=== PATIENT | female | born 1960 | race African-American/Black ===

== ENCOUNTER 2019-12-10 17:28 | Emergency (ER) | payer OTHER ==
[~2019-12-10] VITALS: Ht 162.6 cm; Wt 81.7 kg
[2019-12-10 18:03] LABS: ABSOLUTE NEUTROPHILS 3.1 thou/uL (1.4-8.2); BASOPHILS 1.1 % (0.0-2.0); HEMOGLOBIN 12.4 gm/dL (12.0-15.0); LYMPHOCYTES 42.6 % (24.0-44.0); MCH 30.2 pg (26.0-34.0); MCHC 33.5 g/dL (28.0-37.0); MONOCYTES 6.7 % (1.0-8.0); PLATELET COUNT 277 thou/uL (150-400); POLYS 48.6 % (36.0-66.0); RBC 4.11 mil/uL (4.20-5.00); RDW 13.9 % (10.5-14.5); WBC 6.3 thou/uL (4.0-11.0)
[2019-12-10 18:08] LABS: CALCIUM 9.9 mg/dL (8.5-10.1); CREATININE 1.1 mg/dL (0.6-1.0); POTASSIUM 4.4 mmol/L (3.5-5.1)
[2019-12-10] MEDS ORDERED: ATORVASTATIN CA80 MG PO (18:22)
[2019-12-10] MEDS ORDERED: METFORMIN HCL500 M3 PO (18:22)
[2019-12-10] MEDS ORDERED: NORVASC5 M1 PO (18:22)
[2019-12-10] MEDS ORDERED: OMEPRAZOLE10 MG PO (18:23)
[2019-12-10] MEDS ORDERED: GLYCOTROL CAPS1 EACH PO (18:23)
[2019-12-10 18:41] LABS: PROTIME 9.8 Seconds (9.3-11.4)
[2019-12-10 19:33] VITALS: BP 157/75
--- NOTE | 2019-12-11 07:29 | EKG ---
[facility] [place] [address] ELECTROCARDIOGRAM REPORT Name: EDY MONACO Room #: DEP [facility]#: [id number] Admission: 12/10/19 Attend Phys: Discharge: 12/10/19 Date of : 62 Report #: [id number] THIS REPORT FOR: cc: AMERICO - Jaye family physician/PCP AMERICO - Jaye family physician/PCP Jace Almanza MD [facility] ~ THIS REPORT FOR: //name// [facility] ED Test Date: 2019-12-10 Test Time: 19:00:59 Pat Name: EDY MONACO Department: Room: Gender: F Floor Sweeper: [facility] : 1960 Requested By: Anthony Benson Order Number: [id number] MD: Jace Almanza Measurements Intervals [place] Rate: 79 P: 52 NC: 210 QRS: -15 QRSD: 95 T: 34 QT: 382 QTc: 438 Interpretive Statements Sinus rhythm Borderline left axis deviation Low voltage, precordial leads No previous ECG available for comparison Electronically Signed On 12-11-2019 7:29:38 CDT by Jace Almanza [email or web address] <ELECTRONICALLY SIGNED> By: Jace Almanza MD, FACC 12/11/19 0729 99 99 Jace Almanza MD, FAC /EPI
== END 2019-12-10 19:48 | disposition home or self-care (01) ==
LOC: ER 17:28
PROVIDERS: Emergency Medicine
DX: Z71.1 Person with feared health complaint in whom no diagnosis is made (principal); I10 Essential (primary) hypertension; E11.9 Type 2 diabetes mellitus without complications; J45.909 Unspecified asthma, uncomplicated; E78.5 Hyperlipidemia, unspecified; Z79.899 Other long term (current) drug therapy; Z88.8 Allergy status to other drugs, medicaments and biological substances